=== PATIENT | female | born 1995 | race African-American/Black ===

== ENCOUNTER 2018-04-04 17:56 | Emergency (ER) | payer SELFPAY ==
[~2018-04-04] VITALS: Ht 167.6 cm; Wt 49.9 kg
--- NOTE | 2018-04-04 18:09 | ED PSYCHIATRIC COMPLAINT ---
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 PT ARRIVES TO ED CALM AND COOPERATIVE, TEARFUL. STATES SHE SAID IT OUT OF FRUSTRATION, DENIES SI/HI OR ETOH/DRUG USE. DR. GLEASON AT BEDSIDE TO DISCUSS POC WITH PATIENT Triage Nurses Notes Reviewed? yes : No Patient currently breastfeeds: No HPI: Patient was left go from work today. When the process control manager told her that this the patient broke down since that she didn't know what she was going to do and that she wished that someone would just come by and kill her. Human Resources Vice President became concerned so called 911. Patient denies any suicidal or homicidal ideations. Patient denies any hallucinations or delusions. Patient lives at home alone with her dog and she does not have any close relatives. Past History Travel History Traveled to [place] past 21 day No Medical History Any Pertinent Medical History? none Surgical History Surgical History: non-contributory Psychosocial History What is your primary language Portuguese Tobacco Use: Never used ETOH Use: occasional use Illicit Drug Use: denies illicit drug use Family History Hx Contributory? No Review of Systems Review of Systems Constitutional: Reports: no symptoms. EENTM: Reports: no symptoms. Respiratory: Reports: no symptoms. Cardiovascular: Reports: no symptoms. GI: Reports: no symptoms. Genitourinary: Reports: no symptoms. Musculoskeletal: Reports: no symptoms. Skin: Reports: no symptoms. Neurological/Psychological: Reports: see HPI, depressed. Hematologic/Endocrine: Reports: no symptoms. Immunologic/Allergic: Reports: no symptoms. All Other Systems: Reviewed and Negative Physical Exam Physical Exam General Appearance: well developed/nourished, mild distress Head: atraumatic Eyes: Bilateral: PERRL, EOMI. Ears, Nose, Throat: normal pharynx, normal ENT inspection, hearing grossly normal Neck: normal inspection, supple, full range of motion Respiratory: normal breath sounds, chest non-tender, no respiratory distress, lungs clear Cardiovascular: regular rate/rhythm, normal peripheral pulses Gastrointestinal: normal bowel sounds, soft, non-tender Extremities: normal range of motion Neurological/Psychiatric: no motor/sensory deficits, awake, alert, calm, oriented x 3 Appearance/Memory/Insight: appropriate appearance, appropriate insight Behavoir/Eye Contact/Speech: cooperative, normal speech, good eye contact Thoughts/Hallucinations: normal thought pattern, no apparent hallucination Skin: intact, normal color, warm/dry Comments: With the patient's permission I talked to her neighbor. Her neighbor has no concerns for her safety and will stay with her this evening. Patient adamantly denies any thoughts of harming herself or anybody else. At this point the patient will be discharged. Patient promises to call 211 or 911 if she has any thoughts of harming herself. SAD PERSONS Done? patient not suicidal Progress Differential Diagnosis: DEPRESSION Plan of Care: Stable for discharge at this time Departure Departure Disposition: HOME OR SELF CARE Condition: Stable Clinical Impression Primary Impression: Depression Additional Instructions: Call 211 or return immediately to the emergency department for any concerns of harming herself, anyone else or for any other concerns. Departure Forms: Customer Survey General Discharge Information
[2018-04-04 18:13] VITALS: BP 139/74
== END 2018-04-04 18:42 ==
LOC: ERH 17:56
DX: F32.9 Major depressive disorder, single episode, unspecified (principal)